=== PATIENT | male | born 1965 | race African-American/Black ===

== ENCOUNTER 2024-08-01 18:48 | Emergency (ER) | payer MEDICARE ==
[2024-08-01] VITALS (16 sets, daily range): BP systolic 145–171; BP diastolic 78–100
[~2024-08-01] VITALS: Ht 177.8 cm; Wt 79.0 kg
[2024-08-01 19:31] LABS: BASO% 0.1 % (0-3); EOS% 0.2 % (0-8); HEMATOCRIT 37.4 % (39.0-50.0); HEMOGLOBIN 11.2 g/dl (14.0-18.0); LYMPH% 9.2 % (15-41); MEAN CELL VOLUME 108.1 fL CALC (80.0-100.0); MEAN CORPUSCULAR HGB 32.4 pG CALC (26.0-32.0); MEAN CORPUSCULAR HGB CONC 29.9 g/dL CAL (32.0-36.0); MONO% 6.2 % (2-13); NEUT# 7.74 thou/uL (1.82-7.42); RED BLOOD COUNT 3.46 mill/uL (4.70-6.10); RED CELL DISTRI WIDTH 16.4 % (11.5-15.5)
[2024-08-01 19:41] LABS: ETHYL ALCOHOL 0 mg/dl (0-30)
[2024-08-01 19:42] LABS: ALBUMIN 4.9 g/dL (3.2-5.0); ALKALINE PHOSPHATASE 116 u/l (38-126); BILIRUBIN, TOTAL 0.6 mg/dL (0.2-1.3); CHLORIDE 101 mmol/l (95-108); SGOT/AST 31 u/l (17-59); SODIUM 145 mmol/l (137-146); TOTAL PROTEIN 7.6 g/dL (6.3-8.2)
[2024-08-01 19:59] LABS: ANION GAP 45 (6-22 (CALC)); BUN/CREATININE RATIO 4 (12-20 (CALC)); ESTIMATED GFR 1 ML/MIN (>=90 (CALC))
[2024-08-01 20:00] LABS: BUN > 240 mg/dL (9-20)
[2024-08-01] MEDS ORDERED: SODIUM POLYSTYRENE SULFONATE 15 G/BTL POWDER PO ONE (20:00)
[2024-08-01 20:01] LABS: CREATININE 66.7 mg/dL (0.7-1.3)
[2024-08-01 20:02] LABS: CARBON DIOXIDE < 5 mmol/l (22-30); IMMATURE GRANULOCYTES 6.3 % (0.0-5.0); POTASSIUM 6.3 mmol/l (3.5-5.1)
[2024-08-01] MEDS ORDERED: CALCIUM GLUCONATE 1 GM in SODIUM CHLORIDE 0.9% 50 ML IV ONE (20:40)
[2024-08-01] MEDS ORDERED: INSULIN REGULAR (HUMAN) 100 UNIT/ML INJ IV ONE (20:40)
[2024-08-01] MEDS ORDERED: DEXTROSE 10% 500 ML BAG IV ONE (20:40)
== END 2024-08-01 22:35 | disposition short-term general hospital (02) ==
LOC: ED 18:48
PROVIDERS: Family Medicine
DX: F22 Delusional disorders (principal); E87.5 Hyperkalemia; U07.1 COVID-19; I12.0 Hypertensive chronic kidney disease with stage 5 chronic kidney disease or end stage renal disease; N18.6 End stage renal disease; Z91.158 Patient's noncompliance with renal dialysis for other reason; Z99.2 Dependence on renal dialysis